=== PATIENT | female | born 1970 | race Caucasian/White ===

== ENCOUNTER 2020-11-07 11:18 | Outpatient (CLI) | payer OTHER | END 2020-11-07 11:20 | disposition home or self-care (01) | LOC: MRI 11:18 | PROVIDERS: ATTEND Orthopaedic Surgery | DX: M25.561 Pain in right knee (principal) | CPT/HCPCS: 73718 ==

== ENCOUNTER 2025-04-21 12:23 | Inpatient (IN) | payer OTHER ==
[~2025-04-21] VITALS: Ht 160 cm; Wt 66.7 kg
[2025-04-21] MEDS ORDERED: AVAPRO300 MG PO (13:36)
[2025-04-21] MEDS ORDERED: 0.9 % SODIUM CHLORIDE 1,000 ML IV SCH ×2 (14:45→18:30)
[2025-04-21] MEDS ORDERED: KETOROLAC TROMETHAMINE 30 MG VIAL IV ONE (14:45)
[2025-04-21] MEDS ORDERED: KETOROLAC TROMETHAMINE 30 MG VIAL ONE (14:46)
[2025-04-21 15:28] LABS: BASO % 1.3 % (0.1-1.2); EOS # 0.36 (0.04-0.54); EOS % 3.1 % (0.7-7.0); LYMPH # 5.42 (1.18-3.74); LYMPH % 45.9 % (19.3-53.1); MEAN PLATELET VOLUME 10.70 fl (9.4-12.4); MONO # 0.76 (0.24-0.82); MONO % 6.4 % (4.7-12.5); NEUT # 5.03 (1.56-6.13); NEUT % 42.6 % (34.0-71.1); RED CELL DISTRIBUTION WIDTH 13.4 % (11.6-14.4)
[2025-04-21 15:29] LABS: COVID-19 AG NEGATIVE (NEGATIVE)
[2025-04-21 15:36] LABS: URINE APPEARANCE Error; URINE BILIRRUBIN Negative (NEGATIVE); URINE BLOOD Negative; URINE COLOR Yellow; URINE GLUCOSE Negative (NEGATIVE); URINE KETONE Negative (NEGATIVE); URINE LEUKOCYTE Moderate; URINE NITRATE Negative; URINE PROTEIN Trace (NEGATIVE); URINE UROBILINOGEN 0.2 E.U./dl
[2025-04-21 15:39] LABS: URINE BACTERIA 61.1 uL (0.0-1933); URINE EPITHELIAL CELLS 6.7 uL (0.0-38.8); URINE RBC 4.1 uL (0.0-20.8); URINE WBC 96.0 uL (0.0-23.2)
[2025-04-21 15:41] LABS: URINE CAST 0.43 uL (0.0-1.40)
[2025-04-21 15:42] LABS: ALT/SGPT 264.0 U/L (12-78); AST/SGOT 138.0 U/L (15-37); BILIRUBIN TOTAL 0.43 mg/dL (0.3-1.2); BUN CREA RATIO 15.0 (7.0-25.0); CREATININE SERUM 0.73 mg/dL (0.55-1.02); GFR 82.17; GLOBULINA 5.0 G/DL (2.4-3.5); GLUCOSE FASTING 111.0 mg/dL (65-100); OSMOLALITY SERUM 272.0 MOSM/KG (275-295)
[2025-04-21 15:51] LABS: COCAINE NEGATIVE (NEGATIVE); METHADONE NEGATIVE (NEGATIVE); OPIATES NEGATIVE (NEGATIVE); THC ( Cannabinoids) NEGATIVE (NEGATIVE)
[2025-04-21 15:56] LABS: INR 1.11
[2025-04-21 16:05] LABS: ERYTHROCYTE SEDIMENTATION RATE 55 mm/hr (0-30)
[2025-04-21] MEDS ORDERED: ACYCLOVIR SODIUM 1,000 MG VIAL IV ONE (17:30)
[2025-04-21 17:40] LABS: ABG PH 7.437 (7.35-7.45); ABG PO2 80.3 mmHg (80-100); BICARBONATE 26.5 mmol/l (23-25)
[2025-04-21] MEDS ORDERED: CEFTRIAXONE SODIUM 2,000 MG in 0.9 % SODIUM CHLORIDE 100 ML IV SCH (18:31)
[2025-04-21] MEDS ORDERED: VANCOMYCIN HCL 1,000 MG VIAL IV SCH (18:32)
[2025-04-21] MEDS ORDERED: FAMOTIDINE/PF 20 MG in 0.9 % SODIUM CHLORIDE 8 ML IV PUSH SCH (18:32)
[2025-04-21] MEDS ORDERED: FAMOTIDINE/PF 20 MG/2 ML VIAL ONE (18:42)
[2025-04-21] MEDS ORDERED: DEXAMETHASONE SODIUM PHOSPHATE 4 MG/ML VIAL ONE (18:42)
[2025-04-21] MEDS ORDERED: CEFTRIAXONE SODIUM 2,000 MG VIAL ONE (18:42)
[2025-04-21] MEDS ORDERED: DEXAMETHASONE SODIUM PHOSP/PF 10 MG/ML VIAL IV ONE (18:45)
[2025-04-21] MEDS ORDERED: ONDANSETRON HCL 4 MG in 0.9 % SODIUM CHLORIDE 50 ML IV PRN (18:45)
[2025-04-21] MEDS ORDERED: ACETAMINOPHEN 500 MG GEL..CAP PO PRN (18:45)
[2025-04-21] MEDS ORDERED: VANCOMYCIN HCL 1,000 MG VIAL ONE (18:51)
[2025-04-21 19:38] LABS: o2 21 %
[2025-04-21 22:44] VITALS: BP 113/65
[2025-04-22] MEDS ORDERED: SODIUM CHLORIDE 0.9% IV SCH (01:00)
[2025-04-22] MEDS ORDERED: ACYCLOVIR SODIUM IV SCH (01:00)
[2025-04-22 01:41] VITALS: BP 98/65; O2SAT 98
[2025-04-22 08:27] VITALS: BP 122/78
[2025-04-22] MEDS ORDERED: IRBESARTAN 300 MG TABLET PO SCH (09:00)
[2025-04-22 18:41] VITALS: BP 127/76
[2025-04-22] MEDS ORDERED: CEFTRIAXONE SODIUM 2,000 MG in 0.9 % SODIUM CHLORIDE 100 ML IV SCH (21:00)
[2025-04-23 01:00] VITALS: BP 92/52; O2SAT 94
[2025-04-23 08:34] VITALS: BP 136/78; O2SAT 99
[2025-04-23] MEDS ORDERED: PANTOPRAZOLE SODIUM 40 MG/VIAL VIAL IV PUSH SCH (13:12)
[2025-04-23] MEDS ORDERED: KETOROLAC TROMETHAMINE 30 MG VIAL IV SCH (13:14)
[2025-04-23] MEDS ORDERED: DEXTROSE 5 %-0.45 % SOD CHLORD 1,000 ML IV SCH (13:15)
[2025-04-23] MEDS ORDERED: DEXTROSE 5 % IN WATER 250 ML IV ONE (13:30)
[2025-04-23 15:03] VITALS: BP 113/69; O2SAT 93
[2025-04-23 15:13] LABS: BASO % 1.1 % (0.1-1.2); EOS # 0.71 (0.04-0.54); EOS % 5.6 % (0.7-7.0); LYMPH # 5.51 (1.18-3.74); LYMPH % 43.1 % (19.3-53.1); MEAN PLATELET VOLUME 12.00 fl (9.4-12.4); MONO # 0.90 (0.24-0.82); MONO % 7.0 % (4.7-12.5); NEUT # 5.45 (1.56-6.13); NEUT % 42.7 % (34.0-71.1); RED CELL DISTRIBUTION WIDTH 13.8 % (11.6-14.4)
[2025-04-23 15:43] LABS: ALT/SGPT 233.0 U/L (12-78); AST/SGOT 119.0 U/L (15-37); BILIRUBIN TOTAL 0.34 mg/dL (0.3-1.2); BUN CREA RATIO 13.0 (7.0-25.0); CREATININE SERUM 0.52 mg/dL (0.55-1.02); GFR 121.54; GLOBULINA 4.0 G/DL (2.4-3.5); GLUCOSE FASTING 96.0 mg/dL (65-100); OSMOLALITY SERUM 281.0 MOSM/KG (275-295)
[2025-04-23] MEDS ORDERED: VANCOMYCIN HCL 5 MG/ML REDILUIDO IV SCH (17:00)
[2025-04-23] MEDS ORDERED: ORPHENADRINE CITRATE 30 MG/ML AMPUL IM SCH (21:00)
[2025-04-24 01:47] VITALS: BP 127/78; O2SAT 93
[2025-04-24 08:53] VITALS: BP 99/63; O2SAT 92
[2025-04-24] MEDS ORDERED: SODIUM CHLORIDE 0.45 % 1,000 ML IV SCH (10:30)
[2025-04-24] MEDS ORDERED: ENOXAPARIN SODIUM 40 MG/0.4 ML SYRINGE SUBCUTANEO SCH (11:12)
[2025-04-24 15:33] VITALS: BP 100/65; O2SAT 95
[2025-04-25 01:22] VITALS: BP 103/68; O2SAT 93
[2025-04-25 07:39] VITALS: BP 118/75; O2SAT 93
[2025-04-25 07:42] LABS: BUN CREA RATIO 17.0 (7.0-25.0); CREATININE SERUM 0.52 mg/dL (0.55-1.02); GFR 121.54; GLUCOSE FASTING 86.0 mg/dL (65-100); OSMOLALITY SERUM 279.0 MOSM/KG (275-295)
[2025-04-25 08:52] LABS: BASO % 1.4 % (0.1-1.2); EOS # 0.90 (0.04-0.54); EOS % 6.4 % (0.7-7.0); LYMPH # 7.34 (1.18-3.74); LYMPH % 52.2 % (19.3-53.1); MEAN PLATELET VOLUME 11.70 fl (9.4-12.4); MONO # 1.16 (0.24-0.82); MONO % 8.2 % (4.7-12.5); NEUT # 4.32 (1.56-6.13); NEUT % 30.7 % (34.0-71.1); RED CELL DISTRIBUTION WIDTH 14.0 % (11.6-14.4)
[2025-04-25] MEDS ORDERED: CEFTRIAXONE SODIUM 2,000 MG in 0.9 % SODIUM CHLORIDE 100 ML IV SCH (09:00)
[2025-04-25] MEDS ORDERED: NAPROXEN 500 MG TABLET PO SCH (10:17)
[2025-04-25 12:02] LABS: CHOL HDL RATIO 7.1 (0-5.0); HDL 17.0 mg/dl (40-60); LDL 65.0 mg/dl (0-130); VLDL 38.0 (0-39)
[2025-04-25 17:16] VITALS: BP 105/60
[2025-04-26 00:20] VITALS: BP 114/72; O2SAT 95
[2025-04-26 08:27] VITALS: BP 122/79; O2SAT 93
[2025-04-26] MEDS ORDERED: REMDESIVIR 100 MG VIAL IV NR (17:00)
[2025-04-26 17:46] VITALS: BP 120/74
[2025-04-26] MEDS ORDERED: GUAIFENESIN 200 MG/10 ML BLIST.PACK PO SCH (20:00)
[2025-04-27 00:28] VITALS: BP 119/73; O2SAT 95
[2025-04-27] MEDS ORDERED: ALBUTEROL SULFATE 3 ML/2.5 MG AMPUL.NEB IH SCH (01:00)
[2025-04-27] MEDS ORDERED: BUDESONIDE 0.25 MG/2 ML AMPUL.NEB IH SCH (01:00)
[2025-04-27 07:11] LABS: HEPATITIS B SURFACE ANTIBODY Non Reactive (.)
[2025-04-27 07:11] LABS: hav igm Negative (Negative); hep b c Negative (Negative); hep b s ag Negative (Negative)
[2025-04-27 07:41] LABS: ALT/SGPT 358.0 U/L (12-78); AST/SGOT 269.0 U/L (15-37); BILIRUBIN TOTAL 0.52 mg/dL (0.3-1.2); BUN CREA RATIO 18.0 (7.0-25.0); CREATININE SERUM 0.51 mg/dL (0.55-1.02); GFR 124.29; GLOBULINA 3.2 G/DL (2.4-3.5); GLUCOSE FASTING 87.0 mg/dL (65-100); OSMOLALITY SERUM 277.0 MOSM/KG (275-295)
[2025-04-27 08:27] VITALS: BP 115/74; O2SAT 94
[2025-04-27] MEDS ORDERED: DEXAMETHASONE SODIUM PHOSPHATE 4 MG/ML VIAL IV STA (08:28)
[2025-04-27 11:12] LABS: ANTI JO 1 < 0.2 AI (0.0-0.9); ANTI-CENTROMERE AB <0.2 AI (0.0-0.9); DNA AB DOUBLE STRABDED 1 IU/mL (0-9)
[2025-04-27 13:08] LABS: EBV EARLY AG IGG 39.7 U/mL (0.0-8.9); vca igm ab < 36.0 U/mL (0.0-35.9)
[2025-04-27 15:12] LABS: CYCLIC CITRULLINE PEPTIDE < 2 units (0-19)
[2025-04-27] MEDS ORDERED: REMDESIVIR 100 MG VIAL IV SCH (17:00)
[2025-04-27 17:32] VITALS: BP 150/81; O2SAT 96
[2025-04-27] MEDS ORDERED: MOMETASONE FUROATE 17GM SPRAY NASAL SCH (21:07)
[2025-04-27] MEDS ORDERED: LORATADINE 10 MG TABLET PO SCH (21:08)
[2025-04-28] MEDS ORDERED: ALBUTEROL SULFATE 3 ML/2.5 MG AMPUL.NEB IH SCH
[2025-04-28 02:12] VITALS: BP 120/71; O2SAT 93
[2025-04-28] MEDS ORDERED: BUDESONIDE 0.25 MG/2 ML AMPUL.NEB IH SCH (05:00)
[2025-04-28 06:20] LABS: BASO % 0.5 % (0.1-1.2); EOS # 0.00 (0.04-0.54); EOS % 0.0 % (0.7-7.0); LYMPH # 8.81 (1.18-3.74); LYMPH % 44.0 % (19.3-53.1); MEAN PLATELET VOLUME 11.70 fl (9.4-12.4); MONO # 2.09 (0.24-0.82); MONO % 10.4 % (4.7-12.5); NEUT # 8.65 (1.56-6.13); NEUT % 43.3 % (34.0-71.1); RED CELL DISTRIBUTION WIDTH 13.8 % (11.6-14.4)
[2025-04-28 06:55] LABS: ALT/SGPT 402.0 U/L (12-78); AST/SGOT 213.0 U/L (15-37); BILIRUBIN TOTAL 0.4 mg/dL (0.3-1.2); BUN CREA RATIO 27.0 (7.0-25.0); CREATININE SERUM 0.52 mg/dL (0.55-1.02); GFR 121.54; GLOBULINA 3.6 G/DL (2.4-3.5); GLUCOSE FASTING 127.0 mg/dL (65-100); OSMOLALITY SERUM 283.0 MOSM/KG (275-295)
[2025-04-28 07:19] LABS: NEUTROPHILS MAN 45.0 %
[2025-04-28 07:20] LABS: BAND MAN 1.0 %; LYMPHOCYTE MAN 38.0 %; MONOCYTE MAN 8.0 %
[2025-04-28 08:07] VITALS: BP 111/73; O2SAT 98
[2025-04-28] MEDS ORDERED: DEXAMETHASONE SODIUM PHOSPHATE 4 MG/ML VIAL IV SCH (09:00)
[2025-04-28] MEDS ORDERED: MOMETASONE FUROATE 17GM SPRAY NASAL SCH (09:00)
[2025-04-28] MEDS ORDERED: BUDESONIDE 0.5 MG/2 ML AMPUL.NEB IH SCH (09:00)
[2025-04-28 15:08] LABS: ANTI CARDIO IGM 10 MPL U/mL (0-12); ANTI MITOCHONDRIAL ANTIBODIES < 20.0 Units (0.0-20.0); SMOOTH MUSCLE ANTIBODY 8 Units (0-19)
[2025-04-28] MEDS ORDERED: REMDESIVIR 100 MG VIAL IV SCH (17:00)
[2025-04-28 17:03] VITALS: BP 144/81; O2SAT 97
[2025-04-28 19:44] LABS: GAMMA GLUTAMIL TRANSFERASE 580.0 U/L (5-55); LDH 607.0 U/L (84-246)
[2025-04-28 19:54] LABS: TSH 1.55 uIU/mL (0.358-3.74)
[2025-04-29 01:00] VITALS: BP 129/72; O2SAT 96
[2025-04-29 06:13] LABS: BASO % 1.1 % (0.1-1.2); EOS # 0.46 (0.04-0.54); EOS % 2.7 % (0.7-7.0); LYMPH # 6.82 (1.18-3.74); LYMPH % 40.7 % (19.3-53.1); MEAN PLATELET VOLUME 11.20 fl (9.4-12.4); MONO # 2.32 (0.24-0.82); NEUT # 6.79 (1.56-6.13); NEUT % 40.6 % (34.0-71.1); RED CELL DISTRIBUTION WIDTH 14.5 % (11.6-14.4)
[2025-04-29 06:24] LABS: MONO % 13.9 % (4.7-12.5)
[2025-04-29 06:41] LABS: BUN CREA RATIO 22.0 (7.0-25.0); CREATININE SERUM 0.54 mg/dL (0.55-1.02); GFR 116.36; GLUCOSE FASTING 86.0 mg/dL (65-100)
[2025-04-29 06:50] LABS: OSMOLALITY SERUM 291.0 MOSM/KG (275-295)
[2025-04-29 08:10] VITALS: BP 134/77; O2SAT 96
[2025-04-29 11:12] LABS: a:g ratio 0.9 (0.7-1.7); alpha 1 g 0.2 g/dL (0.0-0.4); beta g 0.8 g/dL (0.7-1.3); gamma g 1.0 g/dL (0.4-1.8); globulin t 2.7 g/dL (2.2-3.9); prot total 5.0 g/dL (6.0-8.5)
[2025-04-29] MEDS ORDERED: LORazepam 2 MG/ML VIAL IV NR (13:00)
[2025-04-29] MEDS ORDERED: REMDESIVIR 100 MG VIAL IV SCH (17:00)
[2025-04-29 17:08] LABS: anti MPO AB < 0.2 units (0.0-0.9); anti pr3 < 0.2 units (0.0-0.9)
[2025-04-29 17:31] VITALS: BP 135/85; O2SAT 98
[2025-04-29 18:00] LABS: ALT/SGPT 449.0 U/L (12-78); AST/SGOT 247.0 U/L (15-37); BILIRUBIN TOTAL 0.42 mg/dL (0.3-1.2); BILIRUBIN,CONJUGATED 0.14 mg/dL (0.0-0.2)
[2025-04-30 02:06] VITALS: BP 124/76; O2SAT 95
[2025-04-30 08:21] LABS: ALT/SGPT 367.0 U/L (12-78); AST/SGOT 166.0 U/L (15-37); BILIRUBIN TOTAL 0.47 mg/dL (0.3-1.2); BUN CREA RATIO 26.0 (7.0-25.0); CREATININE SERUM 0.46 mg/dL (0.55-1.02); GFR 140.01; GLOBULINA 3.5 G/DL (2.4-3.5); GLUCOSE FASTING 76.0 mg/dL (65-100); OSMOLALITY SERUM 278.0 MOSM/KG (275-295)
[2025-04-30 08:23] VITALS: BP 125/80
[2025-04-30 17:26] VITALS: BP 136/77
[2025-05-01 02:35] VITALS: BP 124/80; O2SAT 93
[2025-05-01 08:26] LABS: ALT/SGPT 317.0 U/L (12-78); AST/SGOT 151.0 U/L (15-37); BILIRUBIN TOTAL 0.51 mg/dL (0.3-1.2); BUN CREA RATIO 20.0 (7.0-25.0); CREATININE SERUM 0.61 mg/dL (0.55-1.02); GFR 101.09; GLOBULINA 3.7 G/DL (2.4-3.5); GLUCOSE FASTING 83.0 mg/dL (65-100); OSMOLALITY SERUM 276.0 MOSM/KG (275-295)
[2025-05-01 08:56] VITALS: BP 113/71
[2025-05-01 18:02] VITALS: BP 144/85
[2025-05-02 02:51] VITALS: BP 114/73; O2SAT 95
[2025-05-02 06:56] LABS: ALT/SGPT 266.0 U/L (12-78); AST/SGOT 112.0 U/L (15-37); BILIRUBIN TOTAL 0.45 mg/dL (0.3-1.2); BUN CREA RATIO 21.0 (7.0-25.0); CREATININE SERUM 0.62 mg/dL (0.55-1.02); GFR 99.21; GLOBULINA 3.7 G/DL (2.4-3.5); GLUCOSE FASTING 94.0 mg/dL (65-100); OSMOLALITY SERUM 279.0 MOSM/KG (275-295)
[2025-05-02 07:00] LABS: BASO % 1.3 % (0.1-1.2); EOS # 0.99 (0.04-0.54); EOS % 4.1 % (0.7-7.0); LYMPH # 15.05 (1.18-3.74); LYMPH % 62.6 % (19.3-53.1); MEAN PLATELET VOLUME 11.20 fl (9.4-12.4); MONO # 2.51 (0.24-0.82); MONO % 10.4 % (4.7-12.5); NEUT # 4.86 (1.56-6.13); NEUT % 20.3 % (34.0-71.1); RED CELL DISTRIBUTION WIDTH 14.9 % (11.6-14.4)
[2025-05-02 08:25] VITALS: BP 114/77
[2025-05-02 08:29] LABS: BAND MAN 5.0 %; EOSINOPHIL MAN 6.0 %; LYMPHOCYTE MAN 39.0 %; MONOCYTE MAN 25.0 %; NEUTROPHILS MAN 14.0 %
[2025-05-02] MEDS ORDERED: XARELTO10 MG PO (09:27)
[2025-05-02] MEDS ORDERED: NAPROXEN500 MG PO (09:28)
[2025-05-02] MEDS ORDERED: AVAPRO300 MG PO (09:28)
[2025-05-02] MEDS ORDERED: PROTONIX40 MG PO (09:29)
[2025-05-05 01:07] LABS: Phos alk 635 IU/L (44-121); bone f 32 % (14-68); intestinal f 3 % (0-18); liver fractio 65 % (18-85)
== END 2025-05-02 11:35 | disposition home or self-care (01) | DRG 689 ==
LOC: ER 13:08 → MEDI 18:49 → MEDJ 04-26 13:22
PROVIDERS: Emergency Medicine; Internal Medicine; Internal Medicine Infectious Disease; Student in an Organized Health Care Education/Training Program; ADMIT Internal Medicine; ATTEND Internal Medicine
PROC: BW28ZZZ Computerized Tomography (CT Scan) of Head (ICD-10-PCS; principal; 2025-04-21)
PROC: B030YZZ Magnetic Resonance Imaging (MRI) of Brain using Other Contrast (ICD-10-PCS; 2025-04-21)
PROC: BW40ZZZ Ultrasonography of Abdomen (ICD-10-PCS; 2025-04-22)
PROC: BW21YZZ Computerized Tomography (CT Scan) of Abdomen and Pelvis using Other Contrast (ICD-10-PCS; 2025-04-24)
PROC: BB24ZZZ Computerized Tomography (CT Scan) of Bilateral Lungs (ICD-10-PCS; 2025-04-24)
PROC: CP1Z1ZZ Planar Nuclear Medicine Imaging of Musculoskeletal System, All using Technetium 99m (Tc-99m) (ICD-10-PCS; 2025-04-25)
PROC: 8E0ZXY6 Isolation (ICD-10-PCS; 2025-04-26)
PROC: XW033E5 Introduction of Remdesivir Anti-infective into Peripheral Vein, Percutaneous Approach, New Technology Group 5 (ICD-10-PCS; 2025-04-26)
PROC: 3E0F7GC Introduction of Other Therapeutic Substance into Respiratory Tract, Via Natural or Artificial Opening (ICD-10-PCS; 2025-04-27)
PROC: BF37ZZZ Magnetic Resonance Imaging (MRI) of Pancreas (ICD-10-PCS; 2025-04-29)
DX: N39.0 Urinary tract infection, site not specified (principal); G04.90 Encephalitis and encephalomyelitis, unspecified; U07.1 COVID-19; R51.9 Headache, unspecified; I10 Essential (primary) hypertension; J32.9 Chronic sinusitis, unspecified
CPT/HCPCS: 70450; 70552; 76700; 74177; 71250; 78315; 74181; 94640; J0248